=== PATIENT | male | born 1960 | race Caucasian/White ===

== ENCOUNTER 2017-06-19 19:10 | Observation (INO) | payer BC ==
[~2017-06-19] VITALS: Ht 175.3 cm; Wt 108.6 kg
[~2017-06-19 19:10] MED LIST: NAPROSYN500 MG PO; NORCO 5/3251 TABLET PO; SIMVASTATIN40 MG PO
[2017-06-19 20:15] LABS: HEMATOCRIT 43.4 % (38.0-50.0); HEMOGLOBIN 14.6 G/DL (12.5-16.6); MCH 29.7 PG (29.0-34.0); MCHC 33.6 G/DL (30.0-36.0); MCV 88.2 FL (86-99); PLATELET COUNT 188 K/uL (156-360); RBC DIS.WIDTH-CV 13.3 % (11.8-14.6); RED BLOOD COUNT 4.92 M/uL (4.00-5.50); WHITE BLOOD COUNT 7.5 K/uL (4.1-10.2)
[2017-06-19 20:23] LABS: CHLORIDE 104 mEq/L (99-109); D-DIMER ELISA < 150.00 ng/mLDDU (<230); POTASSIUM 4.5 mEq/L (3.7-5.4); SODIUM 140 mEq/L (136-147)
[2017-06-19 20:25] LABS: GLUCOSE 149 mg/dL (70-99)
[2017-06-19 20:29] LABS: CREATININE 1.1 mg/dL (0.6-1.3); GFR ESTIMATE (CALCULATED) > 59 mL/min/ (58.99-99999)
[2017-06-19 20:30] LABS: UREA NITROGEN (BUN) 19 mg/dL (9-23)
[2017-06-19 20:36] LABS: TROP-I INTERPRETATION NEGATIVE; TROPONIN-I 0.01 ng/mL (0.0-0.30)
[2017-06-19] MEDS ORDERED: LITE COAT ASPI325 M1 PO (21:07)
[2017-06-19] MEDS ORDERED: METFORMIN HCL500 MG PO (21:07)
[2017-06-19] MEDS ORDERED: LISINOPRIL5 MG PO (21:10)
[2017-06-19] MEDS ORDERED: COZAAR50 MG PO (21:14)
[2017-06-19 21:27] LABS: ALBUMIN 4.2 g/dL (3.2-4.8)
[2017-06-19 21:30] LABS: TOTAL PROTEIN 6.9 g/dL (6.4-8.3)
[2017-06-19 21:31] LABS: TOTAL BILIRUBIN 0.7 mg/dL (0.0-1.0)
[2017-06-19 21:32] LABS: ALKALINE PHOSPHATASE 122 IU/L (3-129)
[2017-06-19 21:35] LABS: AST (GOT) 22 IU/L (2-34); DIRECT BILIRUBIN 0.3 mg/dL (0.0-0.3)
[2017-06-19 21:36] LABS: ALT (GPT) 33 IU/L (3-49)
[2017-06-20 00:15] VITALS: BP 116/60
[2017-06-20 03:42] VITALS: BP 92/50
[2017-06-20 06:19] LABS: TROP-I INTERPRETATION NEGATIVE; TROPONIN-I < 0.01 ng/mL (0.0-0.30)
[2017-06-20 07:19] VITALS: BP 100/61
[2017-06-20 11:58] VITALS: BP 116/64
[2017-06-20 16:33] VITALS: BP 112/56
[2017-06-20] MEDS ORDERED: TOPROL XL50 MG PO (19:15)
== END 2017-06-20 20:44 | disposition home or self-care (01) ==
LOC: EME 19:10 → EDOF 21:49 → 4SOUTH 21:49 → EDOF 21:49 → ENRESERV 21:50 → 4SOUTH 06-20 00:22
PROVIDERS: Internal Medicine; Nurse Practitioner Family
DX: R07.9 Chest pain, unspecified (principal); M54.9 Dorsalgia, unspecified; I25.10 Atherosclerotic heart disease of native coronary artery without angina pectoris; E78.5 Hyperlipidemia, unspecified; I10 Essential (primary) hypertension; J44.9 Chronic obstructive pulmonary disease, unspecified; Z87.891 Personal history of nicotine dependence; K21.9 Gastro-esophageal reflux disease without esophagitis; E11.9 Type 2 diabetes mellitus without complications; E66.9 Obesity, unspecified; F12.90 Cannabis use, unspecified, uncomplicated; F10.11 Alcohol abuse, in remission; Z79.82 Long term (current) use of aspirin; Z79.84 Long term (current) use of oral hypoglycemic drugs; Z88.0 Allergy status to penicillin
CPT/HCPCS: 71046; 80048; 80076; 84484; 85027; 85379; 93005; 99281; 99285; G0378; J1650